=== PATIENT | male | born 1990 | race Caucasian/White ===

== ENCOUNTER 2020-05-01 11:57 | Observation (INO) ==
[2020-05-01] MEDS ORDERED: levETIRAcetam 1,000 MG in 0.9 % Sodium Chloride 100 ML IVPB ONE (12:11)
[2020-05-01 12:25] LABS: Basophils % 0.4 %; Eosinophils # 0.1 K/mcL (0.0-0.6); Eosinophils % 1.3 %; Hematocrit 50.1 % (37.5-50.1); Hemoglobin 16.9 g/dL (12.9-16.9); Immature Granulocytes % 0.5 % (0-4); Lymphocytes # 2.2 K/mcL (0.6-4.6); Lymphocytes % 29.8 %; Mean Corpuscular HGB Conc 33.7 g/dL (31.6-35.5); Mean Corpuscular Hemoglobin 32.8 pg (28.0-33.3); Mean Corpuscular Volume 97.1 fL (83.0-100.0); Mean Platelet Volume 10.1 fL (9.4-12.4); Monocytes # 0.9 K/mcL (0.0-1.3); Monocytes % 11.5 %; Neutrophils # 4.2 K/mcL (1.6-8.9); Platelet Count 179 K/mcL (140-400); Red Blood Count 5.16 M/mcL (4.19-5.50); Red Cell Distribution Width 12.3 % (11.5-14.5); Segmented Neutrophils % 56.5 %; White Blood Count 7.4 K/mcL (4.3-11.1)
[2020-05-01 12:43] LABS: Alanine Aminotransferase 26 Units/L (7-52); Albumin 4.4 g/dL (3.5-5.7); Albumin/Globulin Ratio 1.4 (1.1-2.2); Alkaline Phosphatase 64 Units/L (34-104); Aspartate Amino Transferase 21 Units/L (13-39); BUN/Creatinine Ratio 19 (6-26); Bilirubin,Total 0.5 mg/dL (0.3-1.0); Blood Urea Nitrogen 16 mg/dL (6-20); Calcium 9.1 mg/dL (8.6-10.3); Carbon Dioxide 28 mEq/L (23-29); Chloride 102 mEq/L (98-107); Globulin 3.1 g/dL (2.4-3.5); Glucose 102 mg/dL (70-105); Osmolality,Calculated 285 (280-300); Potassium 3.7 mEq/L (3.5-5.1); Sodium 137 mEq/L (136-145); Total Protein 7.5 g/dL (6.4-8.9); Valproate 93 mcg/mL (50-100); eGFR For African Americans > 60 (> 60); eGFR For Non-African Americans > 60 (> 60)
[2020-05-01] MEDS ORDERED: Naloxone 0.4 MG/ML INJ IVP PRN (15:56)
[2020-05-01] MEDS ORDERED: Acetaminophen 325 MG TABLET PO ONE (20:30)
[2020-05-01] MEDS ORDERED: *HR* LORazepam 2 MG/ML VIAL IVP PRN (20:33)
[2020-05-02 04:28] LABS: Hematocrit 48.7 % (37.5-50.1); Hemoglobin 15.8 g/dL (12.9-16.9); Mean Corpuscular HGB Conc 32.4 g/dL (31.6-35.5); Mean Corpuscular Hemoglobin 31.5 pg (28.0-33.3); Mean Platelet Volume 10.3 fL (9.4-12.4); Platelet Count 169 K/mcL (140-400); Red Blood Count 5.02 M/mcL (4.19-5.50); Red Cell Distribution Width 12.4 % (11.5-14.5); White Blood Count 7.6 K/mcL (4.3-11.1)
[2020-05-02] MEDS ORDERED: Acetaminophen IV 1,000 MG/100 ML INFUS..BTL IVPB ONE (04:34)
[2020-05-02] MEDS: levETIRAcetam 250 MG TABLET PO SCH ×2 (12:39→20:58)
[2020-05-02] MEDS: Divalproex (12 HR) 500 MG TABLET PO SCH ×2 (13:02→20:58)
[2020-05-02] MEDS ORDERED: Acetaminophen 325 MG TABLET PO ONE (21:11)
[2020-05-03 07:29] VITALS: BP 135/88
[2020-05-03] MEDS: Divalproex (12 HR) 500 MG TABLET PO SCH (07:41)
[2020-05-03] MEDS: levETIRAcetam 250 MG TABLET PO SCH (07:41)
== END 2020-05-03 13:08 | disposition home or self-care (01) ==
LOC: 3BNU 11:57 → EMEROOARM 11:57 → 3BNU 15:08
PROVIDERS: ADMIT Internal Medicine; ATTEND Internal Medicine